=== PATIENT | female | born 1955 | race Caucasian/White ===

== ENCOUNTER 2019-09-05 05:54 | Day surgery (SDC) | payer BC ==
[2019-08-26 11:35] LABS: HEMATOCRIT 41.9 % (36.0-47.0); HEMOGLOBIN 14.4 g/dL (12.0-15.5); MEAN CORPUSCULAR HEMOGLOBIN 29.8 pg (27.0-33.4); MEAN CORPUSCULAR HGB CONC 34.3 g/dL (32.0-36.0); MEAN CORPUSCULAR VOLUME 87 fl (80-97); PLATELET COUNT 263 10^3/uL (150-450); RED BLOOD COUNT 4.82 10^6/uL (3.72-5.28); RED CELL DISTRIBUTION WIDTH 13.2 % (11.5-14.0); WHITE BLOOD COUNT 5.3 10^3/uL (4.0-10.5)
[2019-08-26 11:43] LABS: APPEARANCE,URINE CLEAR; BILIRUBIN,URINE NEGATIVE (NEGATIVE); COLOR,URINE STRAW; GLUCOSE, URINE NEGATIVE (NEGATIVE); KETONES,URINE NEGATIVE (NEGATIVE); LEUKOCYTE ESTERASE,URINE TRACE (NEGATIVE); NITRITE,URINE NEGATIVE (NEGATIVE); PROTEIN,URINE NEGATIVE (NEGATIVE); URINE SPECIFIC GRAVITY 1.003; UROBILINOGEN,URINE NEGATIVE mg/dL (<2.0)
[2019-08-26 11:56] LABS: ALBUMIN 5.1 g/dL (3.5-5.0); ALKALINE PHOSPHATASE 42 U/L (38-126); ANION GAP 13 (5-19); ASPARTATE AMINO TRANSFERASE 25 U/L (14-36); BILIRUBIN,DIRECT 0.4 mg/dL (0.0-0.4); BILIRUBIN,TOTAL 0.9 mg/dL (0.2-1.3); BLOOD UREA NITROGEN 20 mg/dL (7-20); CALCIUM 10.6 mg/dL (8.4-10.2); CARBON DIOXIDE 30 mmol/L (22-30); CHLORIDE 96 mmol/L (98-107); GLUCOSE 94 mg/dL (75-110); POTASSIUM 4.4 mmol/L (3.6-5.0); TOTAL PROTEIN 7.9 g/dL (6.3-8.2)
--- NOTE | 2019-08-26 16:22 | EKG REPORT ---
SEVERITY:- BORDERLINE ECG - SINUS OR ECTOPIC ATRIAL RHYTHM BORDERLINE R WAVE PROGRESSION, ANTERIOR LEADS BORDERLINE T ABNORMALITIES, ANT-LAT LEADS : Confirmed by: Sharron Gibson MD 26-Aug-2019 16:21:34
[~2019-09-05 05:54] MED LIST: CEFAZOLIN 1 GM/D5W RTU 1 GM/50 ML RTUPB IV ONE; CEFAZOLIN 1 GM/D5W RTU 1 GM/50 ML RTUPB IV PRN; LACTATED RINGERS 1000 ML IV PRN
[2019-09-05] MEDS ORDERED: BUPIVACAINE HCL 0.25 % INJ/PF (2.5 MG/1 ML) 30 ML VIAL ONE (07:32)
[2019-09-05] MEDS ORDERED: VASOPRESSIN INJ 20 UNIT/1 ML VIAL ONE ×2 (07:32→07:58)
[2019-09-05] MEDS ORDERED: FENTANYL CITRATE INJ/PF 250 MCG/5 ML AMPULE ONE (07:59)
[2019-09-05] MEDS ORDERED: MORPHINE SULFATE 10 MG/ML INJ ONE (08:00)
[2019-09-05] MEDS ORDERED: ONDANSETRON HCL INJ/PF 4 MG/2 ML SDV ONE (08:00)
[2019-09-05] MEDS ORDERED: DEXAMETHASONE SOD PHOSPHATE INJ 4 MG/1 ML VIAL ONE (08:00)
[2019-09-05] MEDS ORDERED: MIDAZOLAM 2 MG/2 ML INJ ONE (08:00)
[2019-09-05] MEDS ORDERED: PROPOFOL INJ 200 MG/20 ML VIAL IV ONE (08:00)
[2019-09-05] MEDS ORDERED: RINGERS SOLUTION,LACTATED 1,000 ML IV PRN (08:26)
[2019-09-05] MEDS ORDERED: IBUPROFEN 800 MG TABLET PO PRN ×2 (08:26→13:10)
[2019-09-05] MEDS ORDERED: KETOROLAC TROMETHAMINE INJ/PF 30 MG/1 ML SDV IV PRN (08:26)
[2019-09-05] MEDS ORDERED: OXYCODONE-ACETAMINOPHEN 5-325 MG TABLET PO PRN ×3 (08:26→13:11)
[2019-09-05] MEDS ORDERED: HYDROMORPHONE HCL INJ/PF 2 MG/ML AMPULE IV PRN (08:29)
[2019-09-05] MEDS ORDERED: CEFAZOLIN INJ 1 GM VIAL ONE (08:50)
[2019-09-05] MEDS: BUPIVACAINE HCL 0.5%-EPI 1:200000 INJ/PF 30 ML VIAL ONE ×2 (08:55→09:55)
[2019-09-05] MEDS ORDERED: DIPHENHYDRAMINE HCL 50 MG/ML VIAL IV PRN (09:21)
[2019-09-05] MEDS ORDERED: FENTANYL CITRATE INJ/PF 100 MCG/2 ML AMPUL IV PRN ×3 (09:21)
[2019-09-05] MEDS ORDERED: PROMETHAZINE HCL INJ 25 MG/1 ML VIAL IV PRN ×2 (09:21)
[2019-09-05] MEDS ORDERED: MEPERIDINE HCL/PF INJ 25 MG/1 ML DISP.SYRIN IV PRN (09:21)
[2019-09-05] MEDS ORDERED: MORPHINE SULFATE 10 MG/ML INJ IV PRN (09:21)
[2019-09-05] MEDS ORDERED: PHENYLEPHRINE HCL INJ/PF 10 MG/1 ML SDV ONE (09:35)
[2019-09-05] MEDS ORDERED: ROCURONIUM BROMIDE INJ 50 MG/5 ML VIAL IV ONE (09:35)
--- NOTE | 2019-09-05 12:08 | Operative Report ---
Operative Report DATE OF SURGERY: 09/05/19 PREOPERATIVE DIAGNOSIS: Abnormal PAP smear abnormal glandular cells favor neopl asm. Fibroid uterus POSTOPERATIVE DIAGNOSIS: same as above OPERATION: Laparoscopic assisted vaginal hysterectomy with bilateral salpingooophorectomies SURGEON: JED AMARO ANESTHESIA: GA TISSUE REMOVED OR ALTERED: Cervix, uterus with fibroids, bilateral fallopian tubes and ovaries. COMPLICATIONS: None ESTIMATED BLOOD LOSS: 800 INTRAOPERATIVE FINDINGS: Enlarged fibroid uterus with multiple fibroids including one in to the broad ligament on the left side. Both ovaries and bilateral fallopian tubes appear normal. Both ureters noted pulsating near pelvic brim. PROCEDURE: The patient was taken to the operating room and placed on the OR table in the supine position. General anesthesia was administered and found to be adequate. She was then placed in the dorsal lithotomy position and prepped, then draped in usual sterile fashion. 2 grams of Ancef were given IV prior to the procedure for infection prophylaxis. A timeout was taken. A weighted speculum was placed in the posterior vaginal vault and a Haider retractor was used to bring the cervix into good view. A single-tooth tenaculum was used to grasp the anterior lip of the cervix and a V care uterine ma nipulator was placed without difficulty. All instruments were removed from the vagina besides the V care and the patient's legs were lowered. Sterile gloves were then donned and attention was turned of the patient's abdomen where a 1 cm infraumbilical incision was made and carried down to the level the rectus fascia. The rectus fascia was then grasped with 2 Kocker clamps and incised with Porter scissors. A digital sweep was done noting entry into the abdomen with no adhesions at the site of entry. A 0 Vicryl suture was then used to tag the fascia on each side. The Kocker clamps were then removed. The laparoscope was inserted verifying placement into the patient's abdomen. CO2 gas was used to insufflate the abdomen to quantity sufficient for laparoscopy: approximately 15 mmHg. Under direct visualization two 5 mm ports were placed one in the right lower and one in the left lower quadrant. Placed in trendelenberg. Using a grasper and blunt probe the pelvic anatomy was examined and pictures were obtained. The uterus appeared to have multiple fibroids. The fallopian tubes noted with evidence of bilateral tubal ligation. The lefte ovary was elevated from the ovarian fossa and uteter was noted out of harms way. The LigaSure was then used to cross clamp, coagulate and cut the left IP ligament along with the left fallopian tube to the level uterus. The round ligament was grasped on the left coagulated and cut using the LigaSure. Dissection continued across the anterior surface of the uterus just across the midline. A bladder flap was developed and the bladder was dissected out of harm's way. The uterine arteries were skeletonized and using the LigaSure they were clamped, coagulated and cut. This continued in a segmental fashion to the level of the cervix. This was somewhat difficult due to a fibroid in the broad ligament at at this level. This was repeated on the right side starting with the right IP ligament along with the right fallopian tube. The right round ligament was then identified, crossclamped, coagulated and cut. The right utero-ovarian ligament was then identified crossclamped, coagulated and cut using the LigaSure. The remaining mesosalpinx was taken down over the anterior surface of the uterus and the bladder flap was further developed from the right side. The bladder was noted to be entirely out of harm's way. The right uterine vessels were identified skeletonized, crossclamped, coagulated and ligated with the LigaSure to the level of the cervix. At this point decision was made to proceed with colpotomy. The colpotomy was completed anteriorly but due to location of uterine fibroids and difficulty with manipulation because it was bulky, decision was made to complete colpotomy from the vagina. All instruments were removed and CO2 gas was allowed to escape from the patient's abdomen. Attention was turned to the patient's vagina. The weighted speculum was placed in the posterior vaginal vault and Bupivicane with lidocaine was injected at remaining cuff. Posterior colpotomy was obtained and the long weighted speculum placed. Some bleeding continued during this process. This was thought to be from posterior cuff. Alexander clamps were used bilaterally to take down the remaining cardinal and uterosacral ligmaments. Awa stitches and ligasure used in this process. Fibroids complicated the process on the left and three were reomoved in the area of the broad ligament. Once the specimen was free, the uterus, cervix and bilateral fallopian tubes and ovaries were removed through the patient's vagina. These will be sent to the lab for later pathologic analysis. A retractor was used to see the apex of the vaginal cuff. The angles were grasped bilaterally with Allis clamps. 0 Vicryl suture was used to stitch the angles bilaterally incorporating the uterosacral ligament. A modified Vang's culdoplasty was done. The remaining portion of the vaginal cuff was then closed using interrupted 0 Vicryl suture in a series of [id number] stitches. The cuff was noted to be intact and hemostatic. Copious amounts of warm irrigation, normal saline were used to clear any debris from the vagina and the incision was inspected once more and noted to be nicely hemostatic. Sterile gloves were then donned and attention was turned back to the patient's abdomen. The laparoscope was reinserted and the pelvis was irriga kyra. Good hemostasis was noted. Both ureters were noted to just below pelvic brim with peristalisis . The 2 lower quadrant ports were removed under direct visualization. No bleeding was noted at either site. Laparoscope and infra umbilical trocar was removed after CO2 gas was allowed to escape from the patient's abdomen. The rectus fascia was closed in the infraumbilical area with the previously placed 0 Vicryl sutures. All skin incisions were closed with 3-0 Monocryl suture in a series of interrupted stitches. The skin incision was then cleaned, dried and Dermabond was applied over each incision. All instrument sponge and needle counts were correct x3 for the procedure. The patient tolerated the procedure well and will proceed to recovery in stable condition.
[2019-09-05] MEDS ORDERED: DOCUSATE SODIUM 100 MG CAPSULE PO SCH (18:00)
[2019-09-05 18:02] LABS: HEMATOCRIT 33.3 % (36.0-47.0); HEMOGLOBIN 11.3 g/dL (12.0-15.5); MEAN CORPUSCULAR HEMOGLOBIN 29.7 pg (27.0-33.4); MEAN CORPUSCULAR VOLUME 87 fl (80-97); PLATELET COUNT 236 10^3/uL (150-450); RED BLOOD COUNT 3.82 10^6/uL (3.72-5.28); RED CELL DISTRIBUTION WIDTH 12.7 % (11.5-14.0); WHITE BLOOD COUNT 10.2 10^3/uL (4.0-10.5)
[2019-09-06 06:34] LABS: ABSOLUTE EOSINOPHILS # (AUTO) 0.1 10^3/uL (0.0-0.6); ABSOLUTE LYMPHOCYTES (AUTO) 1.5 10^3/uL (0.5-4.7); ABSOLUTE MONOCYTES (AUTO) 0.6 10^3/uL (0.1-1.4); ABSOLUTE NEUT (AUTO) 5.4 10^3/uL (1.7-8.2); BASOPHILS % (AUTO) 0.4 % (0-2); EOSINOPHILS % (AUTO) 0.8 % (0-6); HEMATOCRIT 29.2 % (36.0-47.0); HEMOGLOBIN 10.2 g/dL (12.0-15.5); LYMPHOCYTES % (AUTO) 19.5 % (13-45); MEAN CORPUSCULAR HEMOGLOBIN 30.3 pg (27.0-33.4); MEAN CORPUSCULAR HGB CONC 34.8 g/dL (32.0-36.0); MEAN CORPUSCULAR VOLUME 87 fl (80-97); MONOCYTES % (AUTO) 7.5 % (3-13); PLATELET COUNT 236 10^3/uL (150-450); RED BLOOD COUNT 3.36 10^6/uL (3.72-5.28); RED CELL DISTRIBUTION WIDTH 12.7 % (11.5-14.0); SEGMENTED NEUTROPHILS % (AUTO) 71.8 % (42-78); TOTAL CELLS COUNTED % (AUTO) 100 %; WHITE BLOOD COUNT 7.6 10^3/uL (4.0-10.5)
[2019-09-06 08:07] VITALS: BP 101/57
--- NOTE | 2019-09-06 10:03 | PDOC DISCHARGE SUMMARY ---
Impression - Admit/DC Date/PCP Admission Date/Primary Care Provider: LYNDSEY SIERRA MD Discharge Date: 09/06/19 - Discharge Diagnosis (1) Fibroid uterus Is this a current diagnosis for this admission?: Yes (2) Fibroid uterus Is this a current diagnosis for this admission?: Yes (3) Abnormal Pap smear of cervix Is this a current diagnosis for this admission?: Yes - Additional Information Resuscitation Status: Full Code - Stable after laparoscopic vaginal hysterectomy Discharge Diet: As Tolerated Discharge Activity: Activity As Tolerated Referrals: JED ROCHA MD [ACTIVE PROVISIONAL STAFF] - 09/19/19 8:30 am (Please keep your scheduled follow up appointment with Dr Rocha on 09/19/19 at 8:30 am. If you have any questions please call the office directly at .) Prescriptions: Docusate Sodium [Colace 100 mg Capsule] 100 mg PO BID 15 Days #30 capsule Ibuprofen [Motrin 800 mg Tablet] 800 mg PO Q8 PRN 15 Days #30 tablet PRN Reason: For Pain Scale 1-3 Hydrocodone/Acetaminophen [Oran 5-325 mg Tablet] 1 tab PO Q6 PRN 5 Days #15 tablet PRN Reason: For Pain Scale 4-5 Home Medications: Atorvastatin Calcium [Lipitor 10 mg Tablet] 10 mg PO QHS 08/26/19 Bupropion HCl [Bupropion HCl ER] 300 mg PO DAILY 08/26/19 Ergocalciferol (Vitamin D2) [Vitamin D2] 1,250 mcg PO DAILY 08/26/19 Fenofibrate 50 mg PO DAILY 08/26/19 Levothyroxine Sodium [Synthroid 0.088 mg Tablet] 88 mcg PO DAILY 08/26/19 Lisinopril [Prinivil] 5 mg PO DAILY 08/26/19 Docusate Sodium [Colace 100 mg Capsule] 100 mg PO BID 15 Days #30 capsule 09/05/19 Hydrocodone/Acetaminophen [Oran 5-325 mg Tablet] 1 tab PO Q6 PRN 5 Days #15 tablet 09/05/19 Ibuprofen [Motrin 800 mg Tablet] 800 mg PO Q8 PRN 15 Days #30 tablet 09/05/19 History of Present Illiness History of Present Illness: JEFF MENDOZA is a 64 year old female Physical Exam - Physical Exam Vital Signs: Temp Pulse Resp BP Pulse Ox 98.3 F 74 16 101/57 L 100 09/06/19 07:27 09/06/19 07:27 09/06/19 07:27 09/06/19 07:27 09/06/19 07:27 Intake & Output 09/05/19 09/06/19 09/07/19 06:59 06:59 06:59 Intake Total 0 3350 Output Total 3250 Balance 0 100 Weight 65.77 kg 65.7 kg Results Laboratory Results: WBC 7.6 10^3/uL (4.0-10.5) 09/06/19 05:56 RBC 3.36 10^6/uL (3.72-5.28) L 09/06/19 05:56 Hgb 10.2 g/dL (12.0-15.5) L 09/06/19 05:56 Hct 29.2 % (36.0-47.0) L 09/06/19 05:56 MCV 87 fl (80-97) 09/06/19 05:56 MCH 30.3 pg (27.0-33.4) 09/06/19 05:56 MCHC 34.8 g/dL (32.0-36.0) 09/06/19 05:56 RDW 12.7 % (11.5-14.0) 09/06/19 05:56 Plt Count 236 10^3/uL (150-450) 09/06/19 05:56 Lymph % (Auto) 19.5 % (13-45) 09/06/19 05:56 Ransom % (Auto) 7.5 % (3-13) 09/06/19 05:56 Eos % (Auto) 0.8 % (0-6) 09/06/19 05:56 Baso % (Auto) 0.4 % (0-2) 09/06/19 05:56 Absolute Neuts (auto) 5.4 10^3/uL (1.7-8.2) 09/06/19 05:56 Absolute Lymphs (auto) 1.5 10^3/uL (0.5-4.7) 09/06/19 05:56 Absolute Monos (auto) 0.6 10^3/uL (0.1-1.4) 09/06/19 05:56 Absolute Eos (auto) 0.1 10^3/uL (0.0-0.6) 09/06/19 05:56 Absolute Basos (auto) 0.0 10^3/uL (0.0-0.2) 09/06/19 05:56 Seg Neutrophils % 71.8 % (42-78) 09/06/19 05:56 Sodium 139.2 mmol/L (137-145) 08/26/19 11:00 Potassium 4.4 mmol/L (3.6-5.0) 08/26/19 11:00 Chloride 96 mmol/L (98-107) L 08/26/19 11:00 Carbon Dioxide 30 mmol/L (22-30) 08/26/19 11:00 Anion Gap 13 (5-19) 08/26/19 11:00 BUN 20 mg/dL (7-20) 08/26/19 11:00 Creatinine 1.12 mg/dL (0.52-1.25) 08/26/19 11:00 Est GFR ( Amer) 59 (>60) L 08/26/19 11:00 Est GFR (MDRD) Non-Af 49 (>60) L 08/26/19 11:00 Glucose 94 mg/dL (75-110) 08/26/19 11:00 Calcium 10.6 mg/dL (8.4-10.2) H 08/26/19 11:00 Total Bilirubin 0.9 mg/dL (0.2-1.3) 08/26/19 11:00 Direct Bilirubin 0.4 mg/dL (0.0-0.4) 08/26/19 11:00 Neonat Total Bilirubin Not Reportable 08/26/19 11:00 Neonat Direct Bilirubin Not Reportable 08/26/19 11:00 Neonat Indirect Bili Not Reportable 08/26/19 11:00 AST 25 U/L (14-36) 08/26/19 11:00 ALT 24 U/L (<35) 08/26/19 11:00 Alkaline Phosphatase 42 U/L (38-126) 08/26/19 11:00 Total Protein 7.9 g/dL (6.3-8.2) 08/26/19 11:00 Albumin 5.1 g/dL (3.5-5.0) H 08/26/19 11:00 Urine Color STRAW 08/26/19 11:07 Urine Appearance CLEAR 08/26/19 11:07 Urine pH 6.0 (5.0-9.0) 08/26/19 11:07 Ur Specific Sanderson 1.003 08/26/19 11:07 Urine Protein NEGATIVE mg/dL (NEGATIVE) 08/26/19 11:07 Urine Glucose (UA) NEGATIVE mg/dL (NEGATIVE) 08/26/19 11:07 Urine Ketones NEGATIVE mg/dL (NEGATIVE) 08/26/19 11:07 Urine Blood NEGATIVE (NEGATIVE) 08/26/19 11:07 Urine Nitrite NEGATIVE (NEGATIVE) 08/26/19 11:07 Urine Bilirubin NEGATIVE (NEGATIVE) 08/26/19 11:07 Urine Urobilinogen NEGATIVE mg/dL (<2.0) 08/26/19 11:07 Ur Leukocyte Esterase TRACE (NEGATIVE) H 08/26/19 11:07 Urine WBC (Auto) 0 /HPF 08/26/19 11:07 Squamous Epi Cells Auto <1 /HPF 08/26/19 11:07 Urine Mucus (Auto) RARE /LPF 08/26/19 11:07 Urine Ascorbic Acid NEGATIVE (NEGATIVE) 08/26/19 11:07 Blood Type A POSITIVE 09/05/19 06:20 Antibody Screen NEGATIVE 09/05/19 06:20 Stroke Is this a Stroke Patient?: No Acute Heart Failure - Is this a Heart Failure Patient?: No
== END 2019-09-06 10:50 | disposition home or self-care (01) ==
LOC: OROUT 05:54 → 2N 12:40 → OROUT 09-06 10:50
PROVIDERS: ATTEND Obstetrics & Gynecology
DX: N72 Inflammatory disease of cervix uteri (principal); N84.0 Polyp of corpus uteri; N80.0 Endometriosis of uterus; D25.9 Leiomyoma of uterus, unspecified; N83.8 Other noninflammatory disorders of ovary, fallopian tube and broad ligament; N95.0 Postmenopausal bleeding; N84.1 Polyp of cervix uteri; E03.9 Hypothyroidism, unspecified
CPT/HCPCS: 93005; 86900; 86901; 36415 ×2; 86850; 85025; 85027 ×2; 80053; 81001; 88307 ×2; 93010; 00944; 58552; J2250; J3490 ×3; J0690 ×2; J1100; J3010; J2270; J2370; J2405; J2704; 944